=== PATIENT | female | born 1950 | race Caucasian/White ===

== ENCOUNTER 2016-06-16 08:25 | Day surgery (SDC) | payer OTHER ==
--- NOTE | 2016-06-15 15:36 | HP ---
DATE OF CLINIC: 06/10/2016 AUBREE SANFORD : 1950 PLANNED PROCEDURE: Right Shoulder Arthroscopy with Revision Rotator Cuff Repair and Debridement DATE OF SURGERY: June 16, 2016 SURGEON: Aleksandr Talamantes M.D. HISTORY OF PRESENT ILLNESS Aubree Sanford is a 66 year old female. * Medication list reviewed with patient allergy list reviewed with patient. * Feeling fine * No fever * No chills The patient is a 66-year-old female who is right-hand dominant and over a year from a right shoulder rotator cuff repair and subacromial decompression who continues to have pain in her right shoulder. The patient's original surgery was on April 30, 2015. She had a rotator cuff repair a year ago but has had persistent pain. Repeat MRI demonstrates recurrent tear of the rotator cuff. Previously, the patient had a SwiveLock anchor repair which was repaired back with a FiberTape and a SwiveLock anchor. She had a subacromial decompression performed at the same time. She and I have talked about her persistent pain especially when lowering her arm. She does not have any signs of adhesive capsulitis and is here today to discuss with me the risks as well as benefits of non-operative and surgical treatment. Her occupation is a [employer]. She has had trouble working. She has a cruise scheduled for September to [place] will click to have surgery before then. CURRENT MEDICATION * *Supplement Miscellaneous omega 3, calcium/vit D, cetrixzine, vit D, 0 days, 0 refills * Advair Diskus 100-50 MCG/DOSE Aerosol Powder Breath Activated as directed 0 days, 0 refills * Aspirin 81 MG Tablet 1 once a day 0 days, 0 refills * Estradiol 0.5 MG Tablet 1 once a day 0 days, 0 refills * Lunesta 2 MG Tablet 1 once a day 0 days, 0 refills * Multivitamins Capsule 1 once a day 0 days, 0 refills * Omeprazole 20 MG Capsule Delayed Release 1 once a day 0 days, 0 refills * Proventil HFA 108 (90 Base) MCG/ACT Aerosol Solution as directed 0 days, 0 refills * Restoril 30 MG Capsule 1 once a day 0 days, 0 refills PAST MEDICAL/SURGICAL HISTORY Reported: Shoulder Arthroscopy Right shoulder arthroscopic rotator cuff repair and subacromial decompression 04/30/[address] Aleksandr Talamantes. Medical: Asthma. Surgical / Procedural: Prior surgery bunion 2012, Cholecystectomy, and Caesarean Section. Surgical: * Hysterectomy SOCIAL HISTORY Behavioral: Caffeine use Coffee and Tea - 2-3 a day. No tobacco use, not a current smoker, and not chewing tobacco. Never smoked. Smoking status: Never smoker. Alcohol: Alcohol 1 glass of wine per day and alcohol use Wine - 1 glass a day. Drug Use: Not using drugs. Work: Occupation pharmacy laboratory technician. ALLERGIES * Darvon * Demerol * Erythromycin FAMILY HISTORY 1 children living Family medical history father- DM, kidney disease REVIEW OF SYSTEMS Systemic: No fever and no recent weight change. Cardiovascular: No chest pain or discomfort and no palpitations. Pulmonary: No cough and no wheezing. Gastrointestinal: No nausea, no vomiting, no abdominal pain, and no diarrhea. Hematologic: No easy bleeding (no blood clots). Neurological: No motor disturbances and no sensory disturbances. Skin: No skin lesions and no rash. PHYSICAL FINDINGS * Vitals taken 06/10/2016 08:49 am BP-Sitting R 123/69 mmHg 100 - 120/56 - 80 BP Cuff Size Regular Pulse Rate-Sitting 62 bpm 50 - 100 Temp-Oral 98 F 96 - 101 Height 66 in 59 - 68 Weight 149 lbs 9.6 oz 96 - 178 Body Mass Index 24.1 kg/m2 Body Surface Area 1.77 m2 Pain Level 0 General Appearance: * Well developed. * In no acute distress. Eyes: General/bilateral: Extraocular Movements: * Normal. Lungs: * Clear to auscultation. * No wheezing was heard. * No rales/crackles were heard. Cardiovascular: Heart Rate and Rhythm: * Heart rate was normal. * Heart rhythm regular. Abdomen: Palpation: * Abdominal non-tender. Neurological: * Oriented to time, place, and person. Motor: * Dominant Hand = Right Hand. I examined the patient's right and left shoulders. Forward flexion greater than 90 degrees is painful for the patient. She can force it up but this is painful for her. Having her lower her right arm is more painful for her PHYSICAL FINDINGS RIGHT EXTREMITY Shoulder General Appearance: Arthroscopic incisions are well healed without any signs of erythema, no bruising, no swelling, no gross deformity AROM FF: 100 degrees Abd: 60 degrees IR: L3 PROM Forward Flexion: 0-170 degrees ABD: 0-120 degrees ER (0): 50 degrees Strength (0-5/5) Triceps: 5/5 Biceps: 5/5 EPL,Finger Flexors,Finger Extensors,Wrist Flexors, Wrist Extensors,Intrinsics,Mail Service Coordinator: 5/5 Supra: 4/5 (Good strength by has pain with resistance) Infra: 5/5 Subscap: 5/5 Biceps Exam Muscle Deformity (Alexsander): Not present Vascular Exam Radial Pulse: 2+ Sensation Gross sensation to light touch in the distribution of Median, Ulnar and Radial nerves present PHYSICAL FINDINGS LEFT EXTREMITY Shoulder General Appearance: no gross deformity, no rashes or abrasions AROM Forward Flexion: 0-170 degrees ABD: 0-120 degrees IR: Highest posterior anatomy reached with thumb: L4 PROM FF: 180 degrees Abd: 120 degrees ER (0): 0-50 degrees Strength (0-5/5) Deltoid: 5/5 Triceps: 5/5 Biceps: 5/5 EPL,Finger Flexors,Finger Extensors,Wrist Flexors, Wrist Extensors,Intrinsics,Mail Service Coordinator: 5/5 Rotator cuff Supraspinatus: 5/5 (negative empty can test) Infraspinatus: 5/5 (no pain with resisted external rotation) Subscap: 5/5 Vascular Exam Radial Pulse: 2+ Sensation Gross sensation to light touch in the distribution of Median, Ulnar, and Radial nerves present TESTS * Test: CBC NO DIFF Report Date: 06/10/2016 WBC 5.9 10*3/mL MCV 94.0 fL RBC 4.49 10*6/uL MCH 31.0 pg MCHC 32.9 g/dL Low RDW 13.1 % PLATELET COUNT 265 10*3/mL HCT 42.2 % HGB 13.9 g/L * Test: BASIC METABOLIC PROFILE Report Date: 06/10/2016 BUN 15 mg/dL BUN/CREAT RATIO 17 CALCIUM 10.2 mg/dL GLUCOSE 89 mg/dL CREATININE 0.9 mg/dL SODIUM 140 meq/L POTASSIUM 4.5 meq/L CHLORIDE 103 meq/L CARBON DIOXIDE 30 meq/L ANION GAP 12 meq/L GFR 63 IMAGING MR arthrogram performed on April 14, 2016 was reviewed. This MRI demonstrates a full thickness re-tear of the supraspinatus. The rotator cuff was retracted to the mid-humeral component. It appears from this MRI that the anchor is in place. The appearance of the tear on the sagittal views demonstrates a crescent or potentially an L-shaped component. I showed the patient the appearance of this tear and showed her, her radiology report which describes recurrent tear of the posterior aspect of the supraspinatus. The radiologist also thought that there was a possible labral tear with evidence of underlying tendinopathy and partial thickness tear of the infraspinatus. ASSESSMENT Aleksandr Talamantes MD made the following assessments * Complete tear of right rotator cuff tendon --s/p right shoulder arthroscoic RCR and SAD 1 year ago * Rotator cuff tendonitis -right impingement syndrome * Adhesive capsulitis of shoulder -right * Bicipital tendonitis -right PLAN * OTHER OxyCODONE HCl 5 MG TABS, as directed: one to two tabs by mouth every 4-6 hours as needed for pain, 7 days, 0 refills Keflex 500 MG CAPS, as directed: one tab by mouth every 8 hours until completed after surgery, 2 days, 0 refills OxyCODONE HCl 5 MG TABS, as directed: one to two tabs by mouth every 4-6 hours as needed for pain, 7 days, 0 refills Aleksandr Talamantes MD ordered the following therapy * Arthroscopy of the shoulder with revision RCR and debridement -right THERAPY * Patient not eligible for fall risk assessment. SURGICAL CONSENT We have discussed surgical options including right shoulder arthroscopic revision of rotator cuff repair, debridement and non-operative management. The patient and I spoke about her options. I told her that getting this tendon to heal is not guaranteed. I explained how I would perform a revision rotator cuff repair. We spoke about the common risks associated with the procedure such as persistent pain, inability to repair the tendon, infection, shoulder stiffness, hardware malfunction, anesthesia risks as well as other possible problems. The patient then signed the consent form and we spoke about the post-op rehab plan The patient was counseled in detail regarding the diagnosis, treatment options available, prognosis of each treatment option and the potential risks and complications. The risks of surgery include, but are not limited to, anesthetic , neurovascular complications, pulmonary embolism, deep vein thrombosis, wound dehiscence, failure of any or all of the discussed procedures, infection of the joint or surrounding soft tissue, need for revision surgery, chronic pain, limitations in activities of daily living, inability to return to work, and loss of normal range of motion or functional use of the extremity. There is the possibility of failure over time that may require additional operative or non-operative treatment. The patient acknowledged that there are a number of perioperative risks not mentioned here and would still like to proceed. The patient is aware of and understands these risks, and wishes to proceed with the proposed surgical procedure and other procedures as indicated at the time of surgery. The patient has spoken to her PCP for a preoperative medical risk assessment. The preoperative instructions were reviewed with the patient and all questions were answered. CARE TEAM Rubin Chen MD [facility] BLP/sg
[~2016-06-16 08:25] MED LIST: CEFAZOLIN SODIUM 2 GRAM PREMIX 100 ML IV ONE; IV START KIT ONE; LACTATED RINGERS 1,000 ML ONE
[2016-06-16] MEDS ORDERED: CEFAZOLIN SODIUM 2 GRAM PREMIX 100 ML IV PRN (08:45)
[2016-06-16] MEDS ORDERED: ROPIVACAINE 0.5% 30 ML VIAL ONE (09:29)
[2016-06-16] MEDS ORDERED: NERVE BLOCK PROCEDURAL TRAY 1 EACH ONE (09:30)
[2016-06-16] MEDS ORDERED: LIDOCAINE 2% (PRES FREE) 5 ML VIAL ONE (09:31)
[2016-06-16] MEDS ORDERED: MIDAZOLAM HCL 1 MG/ML 2ML VIAL ONE (09:32)
[2016-06-16] MEDS ORDERED: FENTANYL 5 ML ONE (09:32)
[2016-06-16] MEDS ORDERED: SCOPOLAMINE 1.5 MG/72 HR 1 EACH PATCH TD ONE (10:05)
[2016-06-16] MEDS ORDERED: HYDROMORPHONE HCL 1 MG/ML SYRINGE IV PRN (11:05)
[2016-06-16] MEDS ORDERED: ONDANSETRON 4 MG/2ML 2 ML VIAL IV PRN ×2 (11:05→14:01)
[2016-06-16] MEDS ORDERED: PROMETHAZINE HCL 25 MG/ML VIAL IM PRN (11:05)
[2016-06-16] MEDS ORDERED: ATROPINE SULFATE 0.4 MG/1 ML VIAL IV PRN (11:05)
[2016-06-16] MEDS ORDERED: ON-Q PUMP/ROPIVACAINE 0.2% 450 ML in PREMIX BAG 1 EACH NB PRN (11:05)
[2016-06-16] MEDS ORDERED: FENTANYL 100 MCG/2 ML VIAL IV PRN (11:05)
[2016-06-16] MEDS ORDERED: NALOXONE HCL 0.4 MG/ML VIAL IV PRN (11:05)
[2016-06-16] MEDS ORDERED: LACTATED RINGERS 1,000 ML IV SCH ×2 (11:15→14:01)
[2016-06-16] MEDS ORDERED: DEXAMETHASONE SOD PHOS 4 MG/1 ML VIAL ONE (11:29)
[2016-06-16] MEDS ORDERED: ONDANSETRON 4 MG/2ML 2 ML VIAL ONE (11:30)
[2016-06-16] MEDS ORDERED: METOCLOPRAMIDE HCL 5 MG/ML 2ML VIAL ONE (11:30)
[2016-06-16] MEDS ORDERED: GLYCOPYRROLATE 0.2 MG/ML 1ML VIAL ONE ×2 (12:52)
[2016-06-16] MEDS ORDERED: NEOSTIGMINE METHYLSULFATE 1 MG/ML DOSE ONE ×3 (12:52)
--- NOTE | 2016-06-16 13:19 | PCMBPN ---
Brief Post Op Note: Date of Procedure: 06/16/16 Preoperative Diagnosis: 1. right shoulder recurrrent rotator cuff tear Postoperative Diagnosis: 1. [Same] Procedure: right shoulder arthroscopic revision rotator cuff repair and arthroscopic debridement Surgeon: Aleksandr Talamantes MD Assist: Shari BURNETT Anesthesia: GETA, right intrascalene nerve block and catheter for post-op pain relief Findings: pt continued to have a kyler complex anteriorly but had a torn long head of the biceps. This stump was debrided. The patient had a stellate tear of the supraspinatus fixed with two anchors (Mitek triple loaded helix anteriorly and Arthrex 5.5 corkscrew anchor) Condition: extubated, stable vitals, transferred to pacu Complications: None IV Fluids: 1600 mLs of LR Urine Output: 0 mLs Estimated Blood Loss: 20 mLs Tourniquet Time: [N/A] Specimens: [N/A] Implants: see above Drains: [N/A] PLAN: NWB on the RUE x 6 weeks. SLing at all times. Oxycodone for pain control and keflex for rhina-op prescriptions.
[2016-06-16] MEDS ORDERED: ON-Q PUMP/ROPIVACAINE 0.2% 450 ML ONE (13:20)
[2016-06-16] MEDS ORDERED: MORPHINE SULFATE 2 MG/ML SYRINGE IV PRN (14:01)
[2016-06-16] MEDS ORDERED: OXYCODONE HCL 5 MG TABLET PO PRN (14:01)
[2016-06-16] MEDS ORDERED: DIPHENHYDRAMINE HCL 50 MG/1 ML VIAL IV PRN (14:01)
[2016-06-16] MEDS ORDERED: ACETAMINOPHEN 325 MG TABLET PO PRN (14:01)
--- NOTE | 2016-06-17 10:40 | OP ---
Aubree SANFORD : 1950 [id number] DATE OF PROCEDURE: June 16, 2016 PREOPERATIVE DIAGNOSIS: Right shoulder recurrent rotator cuff tear. POSTOPERATIVE DIAGNOSES: Right shoulder recurrent rotator cuff tear, long head of the biceps tear Albion complex. PROCEDURE: RIGHT SHOULDER ARTHROSCOPIC REVISION ROTATOR CUFF REPAIR AND ARTHROSCOPIC DEBRIDEMENT OF BICEPS STUMP. SURGEON: Aleksandr Talamantes M.D. [employer] MAT ASSEMBLER: Martin Mccarthy P.A.-C. ANESTHESIA: General along with a right interscalene nerve block and catheter for postoperative pain relief. FINDINGS: The patient continued to show evidence of a rotator cuff tear along with a rupture of the long head of the biceps with a persistent stump. This stump was debrided. I then performed a debridement of the bursa around the rotator cuff. The patient had a stellate tear of the supraspinatus. This was fixed with two medial anchors, one was a Mitek triple loaded bioabsorbable anchor placed anteriorly and the second was an Arthrex 5.5 mm corkscrew anchor. CONDITION: The patient was extubated with stable vital signs and transferred to the PACU. COMPLICATIONS: None. INTRAVENOUS FLUIDS: 1600 mL of Lactate Ringer's. URINE OUTPUT: 0 mL ESTIMATED BLOOD LOSS: 20 mL SPECIMENS: N/A TOURNIQUET TIME: N/A IMPLANTS: See above. DRAINS: N/A PLAN: The patient will be nonweightbearing on the right upper extremity for six weeks, in a sling at all times for this time period. Oxycodone for pain control, Keflex for perioperative prescriptions. INDICATIONS: The patient is a 66-year-old female who had a right shoulder rotator cuff repair performed on April 30, 2015. The patient failed to advance in terms of her activities. She continued to have pain in her right shoulder that had not improved with overhead motion. Because of this persistent pain and lack of improvement we discussed the risks and benefits of nonoperative and surgical treatment. An MRI revealed recurrent tear of the supraspinatus. I talked to her about her options. I told her that there is still a risk that the rotator cuff would not heal with a recurrent revision surgery, however this may help her pain. I could not guarantee what her strength will be like after the surgery. The patient and I discussed the risks and benefits of this procedure and the patient elected to proceed. PROCEDURE DESCRIPTION: The patient was seen in the preoperative area. The right arm was signed with the word "Yes" and my initials. I updated and signed the H&P and confirmed with the patient that the consent form matched our proposed procedure. The patient was seen by the anesthesia team who reviewed with the patient about the risks and benefits of right interscalene block and catheter. The patient agreed to have it placed under ultrasound guidance. It was placed without difficulty. The patient was transferred from the preoperative area to the operating theater where they were transferred from the stretcher to the operating room bed. Patient had intraoperative SCD's placed for DVT prophylaxis. The patient had a safety belt placed and then the patient was put to sleep without any problems. The patient was then placed in the left lateral decubitus position making sure an axillary roll was placed and all bony prominences were well-padded. The patient was rotated so that their back was approximately 30 degrees tilted posterior and the bed was turned 90 degrees in the room. The patient was then prepped and draped in sterile fashion first with a Betadine scrub, paint and then chlorhexidine. The patient was then placed in balanced suspension with their arm in the Arthrex STAR sleeve. At this point we performed a final time out confirming that the right side was the correct side, everyone in the room confirmed that the procedure matched the consent form and that xrays and MRI images were on the imaging board. We confirmed that Ancef, 2 gram had been given to the patient approximately 30 minutes prior to the final time out. At this time a spinal needle was used with 30 mL with normal saline to insufflate the joint through the posterior portal. Once the shoulder was insufflated a #15 blade was used to incise the skin by the posterior portal and the scope trocar was placed without incident. At this point the patient's anterior portal was made using a spinal needle from an outside-in technique first using a spinal needle to identify the position in the rotator interval followed by an incision with another #15 blade, placement of a switching stick and a 7mm cannula. Once this was in place a 15-point exam was performed using an arthroscopic probe viewing from posterior to anterior and anterior to posterior. Upon entering the shoulder the patient continued to show evidence anteriorly of a Janell complex. The subscapularis was intact. The patient in the interim has sustained a rupture of the long head of the biceps. The biceps stump was in place. Looking at the cartilage of the glenoid as well as the humeral head the patient continued to show evidence of no arthritis, but the rotator cuff tear was visible. Looking up into the subacromial space from the articular space I could see the stellate type laminar tear. There were three sutures in place. I then made a lateral portal so I could debride the rotator cuff. To do this I made a lateral portal and debrided this while I was viewing from the undersurface. Next, I moved my shaver to the anterior part of the shoulder and debrided the biceps stump. Once this was completed I then moved my scope trocar into the subacromial space. In the subacromial space, I performed a debridement of bursa better exposing the rotator cuff. There were some loose sutures. The anchor was still in place. I removed the sutures from the cuff itself. I then inspected a tear. This was an L shape/stellate tear. There was a flap of tissue more anteriorly, however I thought that I could bring this over repairing the tear. I elected to place one Mitek bioabsorbable 4.5 mm triple loaded anchor more anteriorly, just at the supraspinatus and cartilage surface. This was made through a small incision just off the lateral border of the acromion. With this anchor placed. I then used a ScFive Deltaion FastPass suture shuttling device placing the sutures in horizontal mattress fashion through the tendon. Next, I placed a second more posterior anchor. This was a 5.5 bioabsorbable corkscrew anchor. I placed this more posterior in the cuff using a Mitek suture grasper to facilitate this passer through a posterior lateral incision. Once these sutures were placed I then shuttled my sutures through the lateral cannula and tied these down arthroscopically. The sutures were then cut and I inspected the repair. I was happy with its approximation on the rotator cuff. Prior to doing this repair I did debride the footprint to facilitate healing. At this point I confirmed good hemostasis and was ready to close. I then irrigated the wound closing the skin with interrupted 4-0 Nylon sutures. Then the dressings were placed including Xeroform, 4x4, ABD along with a cryo-cuff and the patient's arm was placed in a sling. All needle and sponge counts were correct. The patient was awoken without difficulty, taken to the recovery room where the patient had good pain control. The patient will plan on nonweightbearing on this right shoulder for close to six weeks. She was given a prescription for oxycodone and Keflex for postoperative prescriptions and the patient will follow up with us for wound check in approximately one week to see how she is progressing. Job [id number] CC: [place]
== END 2016-06-16 17:06 | disposition home or self-care (01) ==
LOC: SDC 08:25
PROVIDERS: ATTEND Orthopaedic Surgery
PROC: 0LQ14ZZ Repair Right Shoulder Tendon, Percutaneous Endoscopic Approach (ICD-10-PCS; principal; 2016-06-16)
DX: M75.121 Complete rotator cuff tear or rupture of right shoulder, not specified as traumatic (principal); S46.111A Strain of muscle, fascia and tendon of long head of biceps, right arm, initial encounter; K21.9 Gastro-esophageal reflux disease without esophagitis; J45.909 Unspecified asthma, uncomplicated; Z79.899 Other long term (current) drug therapy; Z79.82 Long term (current) use of aspirin; Z88.1 Allergy status to other antibiotic agents; Z88.5 Allergy status to narcotic agent; Z88.9 Allergy status to unspecified drugs, medicaments and biological substances; Z87.01 Personal history of pneumonia (recurrent)
CPT/HCPCS: 29827; 64415; J3010; J1100; J2795 ×3; J2765; A9270; J2250; J2405; J7120; A4306; J0690